=== PATIENT | female | born 1955 | race Caucasian/White ===

== ENCOUNTER 2016-07-12 21:09 | Emergency (ER) | payer BC, OTHER | END 2016-07-12 23:05 | disposition home or self-care (01) | DX: R00.2 Palpitations (principal); M19.90 Unspecified osteoarthritis, unspecified site ==

== ENCOUNTER 2017-09-27 12:46 | Outpatient (CLI) | payer BC ==
--- NOTE | 2017-09-27 14:45 | XRAY Report ---
Procedure Date: 09/27/2017 Accession Number: [id number] / [id number] Procedure: XRN - Chest 2 View X-Ray CPT Code: 10434 FULL RESULT: EXAM: Chest 2 View X-Ray DATE: 09/27/2017 12:53 PM CLINICAL HISTORY: SHORTNESS OF BREATH COMPARISON: 02/10/2009 TECHNIQUE: 2 views. FINDINGS: Lungs/Pleura: New right lower lobe infiltrate. No effusion or pneumothorax. Mediastinum: Stable cardiomegaly. Other: None. IMPRESSION: New right lower lobe infiltrate. Stable cardiomegaly. RADIA
== END 2017-09-27 12:47 | disposition home or self-care (01) ==
LOC: DI.N 12:46
PROVIDERS: ATTEND Internal Medicine
DX: R91.8 Other nonspecific abnormal finding of lung field (principal); R06.02 Shortness of breath
CPT/HCPCS: 71046

== ENCOUNTER 2017-10-19 18:31 | Outpatient (CLI) | payer BC ==
--- NOTE | 2017-10-19 19:16 | XRAY Report ---
Procedure Date: 10/19/2017 Accession Number: [id number] / [id number] Procedure: XR - Chest 2 View X-Ray CPT Code: 48483 FULL RESULT: EXAM: CHEST RADIOGRAPHY EXAM DATE: 10/19/2017 07:05 PM. CLINICAL HISTORY: ACUTE UPPER RESPIRATORY INFECTION. COMPARISON: XR CHEST PA AND LAT 02/10/2009. TECHNIQUE: 2 views. FINDINGS: Lungs/Pleura: No focal opacities evident. No pleural effusion. No pneumothorax. Normal volumes. Mediastinum: There is mild cardiomegaly. Other: None. IMPRESSION: No acute intrathoracic plain film abnormality. RADIA
== END 2017-10-19 18:32 | disposition home or self-care (01) ==
LOC: DI 18:31
PROVIDERS: ATTEND Specialist
DX: J06.9 Acute upper respiratory infection, unspecified (principal)
CPT/HCPCS: 71046

== ENCOUNTER 2017-12-10 11:41 | Outpatient (CLI) | payer OTHER, BC ==
--- NOTE | 2017-12-11 16:56 | XRAY Report ---
Reason: POSSIBLE FX Procedure Date: 12/10/2017 Accession Number: [id number] / [id number] Procedure: XR - Forearm RT CPT Code: FULL RESULT: EXAM: RIGHT FOREARM RADIOGRAPHY EXAM DATE: 12/10/2017 12:25 PM. CLINICAL HISTORY: Pain, possible fracture. COMPARISON: None. TECHNIQUE: 2 views. FINDINGS: Bones: No acute fracture or focal osseous destruction. Small posterior olecranon enthesophyte. Joints: Mild degenerative change at the elbow and wrist. Soft Tissues: No radiopaque foreign body. IMPRESSION: No acute fracture or dislocation identified. RADIA
--- NOTE | 2017-12-11 16:57 | XRAY Report ---
Reason: POSSIBLE FX Procedure Date: 12/10/2017 Accession Number: [id number] / [id number] Procedure: XR - Humerus LT CPT Code: FULL RESULT: EXAM: LEFT HUMERUS RADIOGRAPHY EXAM DATE: 12/10/2017 12:25 PM. CLINICAL HISTORY: Pain, fall, possible fracture COMPARISON: None. TECHNIQUE: 2 views. FINDINGS: Bones: No acute fracture or focal osseous destruction. Joints: Elbow and shoulder joints appear maintained with no dislocation identified. Mild degenerative change at the shoulder. More limited assessment of the elbow. Soft Tissues: No radiopaque foreign body. IMPRESSION: No acute fracture identified. RADIA
== END 2017-12-10 11:42 | disposition home or self-care (01) ==
LOC: DI 11:41
DX: S69.91XA Unspecified injury of right wrist, hand and finger(s), initial encounter (principal); M79.622 Pain in left upper arm

== ENCOUNTER 2018-06-18 07:18 | Emergency (ER) | payer BC ==
[2018-06-18 07:29] VITALS: BP 149/99
--- NOTE | 2018-06-18 08:08 | ED Physician Documentation ---
PD HPI HEENT - Stated complaint Stated Complaint: SINUS PRESSURE/TOOTH PX - Chief complaint Chief Complaint: Heent - History obtained from History obtained from: Patient - History of Present Illness Timing - onset: How many days ago (2) Timing - duration: Days (2) Timing - details: Still present Location: Sinuses Associated symptoms: Congestion Similar symptoms before: Diagnosis (Sinus infection) - Treatment prior to arrival Treatment prior to arrival: Ibuprophen - Additional information Additional information: The patient is a 62-year-old female who complains of pain in the left maxillary region. The pain started 2 days ago and has been getting progressively worse. She has been using ibuprofen, without relief. She had associated headache yesterday, but not today. She denies fever or sore throat. She has history of similar symptoms in the past with sinus infection. Review of Systems Constitutional: denies: Fever Eyes: denies: Irritation Ears: denies: Ear pain Nose: reports: Congestion, Sinus pressure / pain Throat: denies: Sore throat Cardiac: denies: Chest pain / pressure Respiratory: denies: Dyspnea, Cough GI: denies: Abdominal Pain, Nausea, Vomiting : denies: Dysuria Skin: denies: Rash Musculoskeletal: denies: Neck pain Neurologic: denies: Headache PD PAST MEDICAL HISTORY - Past Medical History Past Medical History: Yes Respiratory: Pneumonia Derm: Other Other Past Medical History: basal cell carcinoma - Past Surgical History Past Surgical History: Yes HEENT: Tonsil/Adenoidectomy - Present Medications Home Medications: Ambulatory Orders Medication Instructions Recorded Confirmed Amox/Clav 875/125 [Augmentin] 1 each PO Q12H #14 tablet 06/18/18 Hydrocodone/Acetaminophen 1 - 2 each PO Q6H PRN #10 tablet 06/18/18 [Hydrocodon-Acetaminophen 5-325] Oxymetazoline HCl [Afrin] 15 ml NS BID #1 spray 06/18/18 - Allergies Allergies/Adverse Reactions: Allergies Allergy/AdvReac Type Severity Reaction Status Date / Time codeine AdvReac Hives Verified 07/06/15 01:11 - Social History Does the pt smoke?: No Smoking Status: Never smoker Does the pt drink ETOH?: Yes Does the pt have substance abuse?: No - Immunizations Immunizations are current?: Yes - POLST Patient has POLST: No PD ED PE NORMAL - Vitals Vital signs reviewed: Yes (hypertensive) - General General: Alert and oriented X 3, Well developed/nourished, Other (overweight) - HEENT HEENT: Atraumatic, EOMI, Ears normal, Pharynx benign, Other (Tenderness to outpatient over the left maxillary sinus and left frontal sinus.) - Neck Neck: Supple, no meningeal sign, No adenopathy - Cardiac Cardiac: RRR, No murmur - Respiratory Respiratory: No respiratory distress, Clear bilaterally - Abdomen Abdomen: Soft, Non tender - Back Back: No CVA TTP - Derm Derm: No rash - Neuro Neuro: Alert and oriented X 3, No motor deficit, Normal speech Results - Vitals Vitals: Vital Signs - 24 hr 06/18/18 07:25 Temperature 36.3 C L Heart Rate 77 Respiratory 16 Rate Blood Pressure 149/99 H O2 Saturation 97 Oxygen O2 Source Room air PD MEDICAL DECISION MAKING - ED course Complexity details: considered differential, d/w patient ED course: The patient's presentation is most consistent with acute sinusitis. Examination does not reveal dental abscess or pharyngitis. Treatment in the emergency department included administration of Augmentin 1 tablet orally. She is being discharged with prescription for Augmentin, Afrin nasal spray, and Vicodin, 10 tablets. I discussed with her the expected course of illness, antibiotic treatment and outpatient follow-up, as well as potentially worrisome signs or symptoms that should prompt reevaluation in the emergency department. Departure - Departure Disposition: 01 Home, Self Care Clinical Impression: Sinusitis Qualifiers: Sinusitis location: maxillary Chronicity: acute Recurrence: recurrent Qualified Code(s): J01.01 - Acute recurrent maxillary sinusitis Condition: Stable Instructions: ED Sinusitis Abx Tx Follow-Up: Evelio San MD [Primary Care Provider] - Prescriptions: Amox/Clav 875/125 [Augmentin] 1 each PO Q12H #14 tablet Hydrocodone/Acetaminophen [Hydrocodon-Acetaminophen 5-325] 1 - 2 each PO Q6H PRN #10 tablet PRN Reason: pain Oxymetazoline HCl [Afrin] 15 ml NS BID #1 spray Comments: Take Augmentin twice daily as prescribed. Use Afrin nasal spray twice daily as prescribed. You can use ibuprofen, up to 800 mg 3 times daily for its anti-inflammatory effect. You can use Vicodin as prescribed if needed for pain. Follow-up with your primary physician within 2 weeks. Call to schedule appointment. Return to the emergency department if you develop increasing headache, or otherwise worsening symptoms. Discharge Date/Time: 06/18/18 08:27
[2018-06-18] MEDS ORDERED: AMOX/CLAV 875 MG/125 MG TABLET PO STA (08:10)
[2018-06-18] MEDS ORDERED: AMOX/CLAV 875 MG/125 MG TABLET PO ONE (08:23)
== END 2018-06-18 08:27 | disposition home or self-care (01) ==
LOC: ED 07:18
DX: J01.01 Acute recurrent maxillary sinusitis (principal)
CPT/HCPCS: 99283; A9270

== ENCOUNTER 2020-10-26 12:42 | Outpatient (CLI) | payer OTHER, BC ==
--- NOTE | 2020-10-27 10:13 | XRAY Report ---
PROCEDURE: Lumbar Spine 2 View INDICATIONS: SPRAIN OF LIGAMENTS OF LUMBAR SPINE TECHNIQUE: 3 views of the lumbar spine were acquired. COMPARISON: 10/25/2012 FINDINGS: No acute fracture identified. Scattered multilevel endplate spurring and diffuse facet arthropathy. M oderate narrowing of the L2-L3 and L3-L4 disc spaces appear grossly unchanged. Mild narrowing of the remaining lumbar disc spaces also unchanged. There is mild dextrocurvature which is slightly progress ed. Grade 1 anterolisthesis of L4 on L5 as for. IMPRESSION: Overall, lumbar spondylosis and facet arthropathy most pronounced at L3-L4 and L2-L3, no definite interval change since 10/25/2012. Slight interval progression of mild dextrocurvature. Reviewed by: Manuel Pedro MD on 10/27/2020 10:12 AM PDT Approved by: Manuel Pedro MD on 10/27/2020 10:12 AM PDT Station ID: [id number]
--- NOTE | 2020-10-27 13:26 | XRAY Report ---
PROCEDURE: Thoracic Spine 2 View INDICATIONS: SPRAIN OF LIGAMENTS OF THORACIC SPINE TECHNIQUE: 3 views of the thoracic spine were acquired. COMPARISON: None. FINDINGS: Bones: No fractures or dislocations. No suspicious bony lesions. 12 pairs of ribs are noted, and a ppear intact where visualized. There are multilevel degenerative changes of the thoracic spine. No v ertebral body height space loss. Soft tissues: No paravertebral stripe thickening. IMPRESSION: Multilevel degenerative changes of the thoracic spine. No acute abnormality. Reviewed by: Marcus Owens on 10/27/2020 1:25 PM PDT Approved by: Marcus Owens on 10/27/2020 1:25 PM PDT Station ID: [id number]
--- NOTE | 2020-10-27 13:29 | XRAY Report ---
PROCEDURE: Hips 2V BILAT INDICATIONS: SPRAIN OF LIGAMENTS OF LOWER BACK, AND HIP PX TECHNIQUE: Bilateral views of the hip and AP view of the pelvis were acquired. COMPARISON: None FINDINGS: Bones: No fractures or dislocations. There are mild degenerative changes of both hips. No suspiciou s bony lesions. The visualized pelvic ring appears intact. The lumbar spine has degenerative change s. Soft tissues: No suspicious soft tissue calcifications or masses. IMPRESSION: Mild degenerative changes of both hips. No acute abnormality. Reviewed by: Marcus Owens on 10/27/2020 1:27 PM PDT Approved by: Marcus Owens on 10/27/2020 1:27 PM PDT Station ID: [id number]
--- NOTE | 2020-10-28 16:31 | XRAY Report ---
PROCEDURE: Cervical Spine 2 View INDICATIONS: SPRAIN OF LIGAMENTS OF CERVICAL SPINE TECHNIQUE: 3 view(s) of the cervical spine were acquired. COMPARISON: None. FINDINGS: Bones: No fractures or dislocations to the T1 level. The lateral masses of C1 appear intact on the odontoid view. No suspicious bony lesions. Loss of lordosis. Multilevel spondylosis, severe at the C3-C4 C5-C6 and C6-C7 levels as well as C7-T1. Multilevel mid and lower cervical spine facet joint ar thropathy and uncovertebral hypertrophy. Soft tissues: No prevertebral soft tissue swelling. IMPRESSION: Loss of lordosis and multilevel spondylosis. Reviewed by: CIRILO Flores on 10/28/2020 4:30 PM PDT Approved by: Otilio Schuler MD on 10/28/2020 4:30 PM PDT Station ID: [id number]
== END 2020-10-26 12:43 | disposition home or self-care (01) ==
LOC: DI.N 12:42
PROVIDERS: ATTEND Chiropractor
DX: M47.816 Spondylosis without myelopathy or radiculopathy, lumbar region (principal); M47.814 Spondylosis without myelopathy or radiculopathy, thoracic region; M16.0 Bilateral primary osteoarthritis of hip; M47.812 Spondylosis without myelopathy or radiculopathy, cervical region

== ENCOUNTER 2021-08-10 08:00 | Outpatient (CLI) | payer BC, OTHER | END 2021-08-10 23:59 | disposition home or self-care (01) | LOC: LAB 08:00 | PROVIDERS: ATTEND Nurse Practitioner | DX: J06.9 Acute upper respiratory infection, unspecified (principal); Z20.822 Contact with and (suspected) exposure to COVID-19 ==

== ENCOUNTER 2021-08-14 08:00 | Outpatient (CLI) | payer OTHER ==
--- NOTE | 2021-08-14 17:44 | XRAY Report ---
PROCEDURE: Chest 2 View X-Ray INDICATIONS: COUGH TECHNIQUE: 2 view(s) of the chest. COMPARISON: None. FINDINGS: Surgical changes and devices: None. Lungs and pleura: No pleural effusions or pneumothorax. Mild pulmonary vascular congestion is seen. No definite focal infiltrate. Mediastinum: Mediastinal contours are normal. Heart size is enlarged. Bones and chest wall: No suspicious bony abnormalities. Soft tissues appear unremarkable. IMPRESSION: Cardiomegaly and mild congestion. No focal infiltrate, pleural effusion or pneumothorax. Reviewed by: Raymond Oglesby MD on 08/14/2021 5:42 PM PDT Approved by: Raymond Oglesby MD on 08/14/2021 5:42 PM PDT Station ID: [id number]
== END 2021-08-14 23:59 | disposition home or self-care (01) ==
LOC: DI.N 08:00
PROVIDERS: ATTEND Physician Assistant
DX: I51.7 Cardiomegaly (principal); R09.89 Other specified symptoms and signs involving the circulatory and respiratory systems

== ENCOUNTER 2021-08-22 08:00 | Outpatient (CLI) | payer OTHER ==
[2021-08-22 19:27] LABS: BASOPHILS # (AUTO) 0.1 10^3/uL (0.0-0.1); EOSINOPHILS # (AUTO) 0.4 10^3/uL (0.0-0.7); EOSINOPHILS % (AUTO) 5.2 %; HCT - HEMATOCRIT 40.9 % (37.0-47.0); HGB - HEMOGLOBIN 13.1 g/dL (12.0-16.0); LYMPHOCYTES # (AUTO) 1.9 10^3/uL (1.5-3.5); LYMPHOCYTES % (AUTO) 26.4 %; MEAN CORPUSCULAR HEMOGLOBIN 29.5 pg (27.0-31.0); MEAN CORPUSCULAR VOLUME 92.1 fL (81.0-99.0); MEAN PLATELET VOLUME 10.8 fL (7.9-10.8); MONOCYTES # (AUTO) 0.5 10^3/uL (0.0-1.0); MONOCYTES % (AUTO) 7.3 %; NEUTROPHILS # (AUTO) 4.3 10^3/uL (1.5-6.6); NEUTROPHILS % (AUTO) 59.3 %; PLT - PLATELET COUNT 281 10^3/uL (130-450); RED BLOOD COUNT 4.44 10^6/uL (4.20-5.40); RED CELL DISTRIBUTION WIDTH 12.8 % (12.0-15.0); WHITE BLOOD COUNT 7.3 x10^3/uL (4.8-10.8)
[2021-08-22 19:47] LABS: ALBUMIN/GLOBULIN RATIO 1.1 (1.0-2.2); BILIRUBIN,TOTAL 0.8 mg/dL (0.2-1.0); CALCIUM 9.2 mg/dL (8.5-10.3); CREATININE 0.8 mg/dL (0.4-1.0); TOTAL PROTEIN 7.5 g/dL (6.7-8.2)
== END 2021-08-22 23:59 | disposition home or self-care (01) ==
LOC: LAB.N 08:00
PROVIDERS: ATTEND Physician Assistant
DX: I51.7 Cardiomegaly (principal)
CPT/HCPCS: 36415; 80053; 83735; 83880; 84443; 85025

== ENCOUNTER 2021-10-20 14:52 | Outpatient (CLI) | payer OTHER | END 2021-10-20 14:53 | disposition home or self-care (01) | LOC: DI 14:52 | PROVIDERS: ATTEND Physician Assistant | DX: I51.7 Cardiomegaly (principal); R06.00 Dyspnea, unspecified | CPT/HCPCS: 93306 ==

== ENCOUNTER 2021-10-21 11:32 | Outpatient (CLI) | payer OTHER ==
[2021-10-21 18:30] LABS: CHOL/HDL RATIO 3.7 (<4.4); CHOLESTEROL 198 mg/dL; HDL CHOLESTEROL 53 mg/dL; LDL CHOLESTEROL,CALCULATED 122 mg/dL; LDL/HDL RATIO 2.3 (<4.4); TRIGLYCERIDES 114 mg/dL; VLDL CHOLESTEROL 23 mg/dL
== END 2021-10-21 11:33 | disposition home or self-care (01) ==
LOC: LAB.N 11:32
PROVIDERS: ATTEND Physician Assistant
DX: Z13.220 Encounter for screening for lipoid disorders (principal)
CPT/HCPCS: 36415; 80061; 83721

== ENCOUNTER 2021-10-22 12:42 | Outpatient (CLI) | payer OTHER ==
--- NOTE | 2021-10-22 15:58 | MRI Report ---
PROCEDURE: Hip LT W/O INDICATIONS: LEFT HIP PAIN TECHNIQUE: Noncontrast coronal T1 spin echo and STIR through the bony pelvis. Coronal and axial T2 fast spin ec ho with fat saturation, sagittal T1 spin echo, and oblique axial T2 fast spin echo with fat saturatio n through the hip. COMPARISON: None. FINDINGS: Image quality: Excellent. Bones and joints: Mild periarticular osteophyte formation at the bilateral hip joints. Bone marrow o f the pelvic ring and proximal femurs demonstrate otherwise normal signal throughout. No intraosseou s lesions or fractures. No avascular necrosis of the femoral heads. The visualized lower lumbar spi ne appears normally aligned. Small bilateral hip joint effusions, left greater than right.. Tendons: The gluteus medius and minimus tendons appear intact, without associated muscle atrophy. T he iliopsoas tendon appears intact, without adjacent bursal fluid collections. Small amount of high T 2 signal elevation within and adjacent to the proximal left hamstring tendon. Labrum and cartilage: Degenerative tearing of the bilateral hip tereza. Cartilage surface of the femor al head appears of normal thickness. The alpha angle of the femur is within normal limits at less th an 55 degrees. Soft tissues: Visualized muscles demonstrate normal bulk and internal signal. The proximal sciatic neurovascular bundle appears normal adjacent to the hamstring tendons. No free pelvic fluid. Bladde r wall thickness is normal. Genitourinary structures and bowel loops appear normal where visualized. IMPRESSION: 1. Mild left hamstring tendinitis. 2. Bilateral hip osteoarthritis with degenerative tearing of the hip tereza. 3. Left greater than right hip joint effusions. Reviewed by: Eugenia Steward MD on 10/22/2021 3:57 PM PDT Approved by: Eugenia Steward MD on 10/22/2021 3:57 PM PDT Station ID: [id number]
== END 2021-10-22 12:43 | disposition home or self-care (01) ==
LOC: DI 12:42
PROVIDERS: ATTEND Physician Assistant
DX: M16.0 Bilateral primary osteoarthritis of hip (principal); S73.192A Other sprain of left hip, initial encounter; M76.9 Unspecified enthesopathy, lower limb, excluding foot; M25.452 Effusion, left hip; M25.451 Effusion, right hip

== ENCOUNTER 2021-10-23 08:00 | Outpatient (CLI) | payer OTHER ==
--- NOTE | 2021-10-23 13:58 | XRAY Report ---
PROCEDURE: Hip 2 View LT INDICATIONS: HIP PAIN TECHNIQUE: 3 views of the hip were acquired. COMPARISON: None FINDINGS: Bones: Both hips have degenerative changes, mild on the right and moderate on the left. The symphysi s pubis has degenerative changes. No fractures or dislocations. No suspicious bony lesions. The vis ualized pelvic ring appears intact. Soft tissues: No suspicious soft tissue calcifications or masses. IMPRESSION: Degenerative changes of both hips, mild on the right and moderate on the left. Reviewed by: Marcus Owens on 10/23/2021 1:57 PM PDT Approved by: Marcus Owens on 10/23/2021 1:57 PM PDT Station ID: [id number]
== END 2021-10-23 23:59 | disposition home or self-care (01) ==
LOC: DI.WOS 08:00
PROVIDERS: ATTEND Physician Assistant Surgical
DX: M16.0 Bilateral primary osteoarthritis of hip (principal)

== ENCOUNTER 2023-02-18 09:41 | Outpatient (CLI) | payer OTHER ==
--- NOTE | 2023-02-18 11:18 | MRI Report ---
PROCEDURE: LUMBAR SPINE WO INDICATIONS: LUMBAR RADICULOPATHY TECHNIQUE: Noncontrast sagittal T1 spin echo and T2 fast echo, sagittal STIR, axial T1 and T2 fast spin echo thr ough the lumbar spine. In cases with scoliosis, additional coronal T2 fast spin echo may be performe d. COMPARISON: None. FINDINGS: Image quality: Excellent. Alignment and Curvature: Mild grade 1 anterolisthesis of L4 on L5.. Bone Marrow: Marrow is of normal overall signal. No acute vertebral body compression fractures. Spinal Cord: Conus medullaris terminates at the L1 level. Visualized cord demonstrates normal signa l and size. Paraspinous Soft Tissues: No paravertebral masses. T12-L1: Disc desiccation and height loss. Small posterior disc bulge. Facet arthropathy. No central canal or neuroforaminal stenosis. L1-L2: Disc desiccation. No central canal or neuroforaminal stenosis. L2-L3: Disc desiccation, height loss and a posterior disc bulge. Epidural lipomatosis. Mild centra l canal stenosis. Mild right and moderate left neuroforaminal stenosis. L3-L4: Disc desiccation, height loss and a posterior disc bulge. Facet arthropathy and thickening o f ligamentum flavum. Mild central canal stenosis. Mild bilateral neuroforaminal stenosis. L4-L5: Disc desiccation, height loss and a posterior disc bulge. Facet arthropathy and thickening o f ligamentum flavum. Moderate to severe central canal stenosis. Mild bilateral neuroforaminal stenosi s. L5-S1: Disc desiccation. Facet arthropathy. No central canal or neuroforaminal stenosis. IMPRESSION: 1.Multilevel degenerative changes of the lumbar spine are most pronounced at L4-L5 with moderate to s evere central canal stenosis. 2.Additional levels of mild central canal stenosis are present. 3.Moderate left neuroforaminal stenosis at L2-L3. Additional mild multilevel neuroforaminal stenosis as above. Reviewed by: Elan Gruber MD on 02/18/2023 11:17 AM PST Approved by: Elan Gruber MD on 02/18/2023 11:17 AM PST Station ID: [id number]
== END 2023-02-18 09:42 | disposition home or self-care (01) ==
LOC: DI 09:41
PROVIDERS: ATTEND Physician Assistant Medical
DX: M51.36 Other intervertebral disc degeneration, lumbar region (principal); M48.061 Spinal stenosis, lumbar region without neurogenic claudication; M47.816 Spondylosis without myelopathy or radiculopathy, lumbar region; M51.37 Other intervertebral disc degeneration, lumbosacral region; M47.817 Spondylosis without myelopathy or radiculopathy, lumbosacral region

== ENCOUNTER 2023-03-03 09:01 | Outpatient (CLI) | payer OTHER ==
[2023-03-03 11:57] LABS: BASOPHILS # (AUTO) 0.1 10^3/uL (0.0-0.1); BASOPHILS % (AUTO) 1.3 %; EOSINOPHILS # (AUTO) 0.4 10^3/uL (0.0-0.7); EOSINOPHILS % (AUTO) 7.6 %; HCT - HEMATOCRIT 40.2 % (37.0-47.0); HGB - HEMOGLOBIN 12.7 g/dL (12.0-16.0); LYMPHOCYTES % (AUTO) 36.9 %; MEAN CORPUSCULAR HEMOGLOBIN 29.1 pg (27.0-31.0); MEAN CORPUSCULAR HGB CONC 31.6 g/dL (32.0-36.0); MEAN PLATELET VOLUME 10.2 fL (7.9-10.8); MONOCYTES # (AUTO) 0.5 10^3/uL (0.0-1.0); NEUTROPHILS # (AUTO) 2.4 10^3/uL (1.5-6.6); NEUTROPHILS % (AUTO) 44.6 %; PLT - PLATELET COUNT 264 10^3/uL (130-450); RED BLOOD COUNT 4.37 10^6/uL (4.20-5.40); RED CELL DISTRIBUTION WIDTH 12.7 % (12.0-15.0); WHITE BLOOD COUNT 5.4 x10^3/uL (4.8-10.8)
[2023-03-03 12:23] LABS: ALBUMIN 4.3 g/dL (3.2-5.5); ALBUMIN/GLOBULIN RATIO 1.5 (1.0-2.2); ALKALINE PHOSPHATASE 62 IU/L (42-121); ALT ALANINE AMINOTRANSFERASE 15 IU/L (10-60); AST ASPARTATE AMINOTRANSFERASE 19 IU/L (10-42); BILIRUBIN,TOTAL 0.8 mg/dL (0.2-1.0); BUN - BLOOD UREA NITROGEN 20 mg/dL (6-20); CALCIUM 9.7 mg/dL (8.5-10.3); CARBON DIOXIDE - CO2 27 mmol/L (21-32); CHLORIDE 107 mmol/L (101-111); CHOL/HDL RATIO 3.8 (<4.4); CHOLESTEROL 195 mg/dL; CREATININE 0.8 mg/dL (0.6-1.3); GFR - MDRD 71 (>89); GLUCOSE 102 mg/dL (74-104); HDL CHOLESTEROL 52 mg/dL; LDL CHOLESTEROL,CALCULATED 102 mg/dL; POTASSIUM 4.4 mmol/L (3.5-4.5); SODIUM 140 mmol/L (135-145); TOTAL PROTEIN 7.1 g/dL (6.4-8.9); TRIGLYCERIDES 205 mg/dL (48-352); VLDL CHOLESTEROL 41 mg/dL
[2023-03-03 12:26] LABS: THYROID STIMULATING HORMONE 1.12 uIU/mL (0.34-5.60)
== END 2023-03-03 09:02 | disposition home or self-care (01) ==
LOC: LAB.N 09:01
PROVIDERS: ATTEND Physician Assistant Medical
DX: Z00.00 Encounter for general adult medical examination without abnormal findings (principal)
CPT/HCPCS: 36415; 80053; 80061; 83721; 84443; 85025

== ENCOUNTER 2023-05-16 07:57 | Outpatient (CLI) | payer OTHER ==
--- NOTE | 2023-05-16 09:07 | DEXA Report ---
PROCEDURE: Dexa Spine and/or Hip INDICATIONS: POST MENOPAUSAL TECHNIQUE: Dual energy x-ray absorptiometry (DXA) was performed on a [employer]. Regions measur ed are the AP Spine, femoral neck, and if needed forearm. COMPARISON: None FINDINGS: Lumbar Spine: Bone Mineral Density: 1.645 g/cm/cm,T score: 3.9. Left Femoral Neck: Bone Mineral Density: 1.159 g/cm/cm, T score: 0.9. Left Hip: Bone Mineral Density: 1.176 g/cm/cm,T score: 1.3. (T score greater or equal to -1.0: NORMAL) (T score from -1.1 to -2.4: OSTEOPENIA) (T score less than or equal to -2.5 to: OSTEOPOROSIS) Impression: By WHO criteria, this patient has normal bone density. Reviewed by: Leda Palencia MD on 05/16/2023 9:05 AM PST Approved by: Leda Palencia MD on 05/16/2023 9:05 AM PST Station ID: [id number]
== END 2023-05-16 07:58 | disposition home or self-care (01) ==
LOC: DI 07:57
PROVIDERS: ATTEND Physician Assistant
DX: Z78.0 Asymptomatic menopausal state (principal)